=== PATIENT | female | born 1970 | race Caucasian/White ===

== ENCOUNTER → 2020-03-04 11:52 | Outpatient (CLI) | payer OTHER, SELFPAY ==
--- NOTE | 2020-03-04 11:56 | BI_ITS ---
MAMMOGRAPHY - BILATERAL SCREENING REASON FOR EXAM: Female, 49 years old. Routine annual screening examination. PERTINENT HISTORY: Non-contributory. TECHNIQUE: Digital bilateral breast star (3D mammographic acquisition) in the CC and MLO projections. 2-D mediolateral oblique (MLO) and craniocaudad (CC) views of both breasts were obtained. CAD: Full Field Digital Mammography with Computer Added Detection was performed. COMPARISON: Comparison is made with prior outside examination dated 03/07/2019. FINDINGS: Breast Composition: The breasts are extremely dense, which lowers the sensitivity of mammography. There are no dominant masses or suspicious calcifications. No other significant abnormalities are identified. There has been no significant change since the prior study. BI/SCREEN MAMM (CAD) W/STAR BILAT IMPRESSION: Stable bilateral screening mammogram. Yearly follow-up mammogram recommended. (A) ASSESSMENT CATEGORY: BIRADS Category 1: Negative. A letter regarding these results will be sent to the patient by the facility within 30 days. Approximately 10% of breast cancers are not detected by mammography. A normal mammogram should not delay biopsy of a clinically suspicious abnormality. [id number] Electronically Signed: Lucio Reynolds, at 14:37 EDT , Service support ,
== END ==
PROVIDERS: PCP Family Medicine; Referring Provider Family Medicine; Visit Provider Family Medicine
DX: Z12.31 Encounter for screening mammogram for malignant neoplasm of breast (principal)
CPT/HCPCS: 77063; 77067

== ENCOUNTER → 2022-12-22 | Outpatient (CLI) | payer OTHER, SELFPAY ==
--- NOTE | 2022-12-22 07:26 | BI_ITS ---
MAMMOGRAPHY - BILATERAL SCREENING REASON FOR EXAM: Female, 52 years old. Routine annual screening examination. PERTINENT HISTORY: Non-contributory. TECHNIQUE: Digital bilateral breast star (3D mammographic acquisition) in the CC and MLO projections. 2-D mediolateral oblique (MLO) and craniocaudad (CC) views of both breasts were obtained. CAD: Full Field Digital Mammography with Computer Added Detection was performed. COMPARISON: Comparison is made with prior examination March 04, 2020. FINDINGS: Breast Composition: The breasts are extremely dense, which lowers the sensitivity of mammography. There are no dominant masses or suspicious calcifications. No other significant abnormalities are identified. There has been no significant change since the prior study. BI/SCRN MAMM (CAD)W/STAR BILAT IMPRESSION: Stable bilateral screening mammogram. Yearly follow-up mammogram recommended. (A) ASSESSMENT CATEGORY: BIRADS Category 1: Negative. A letter regarding these results will be sent to the patient by the facility within 30 days. Approximately 10% of breast cancers are not detected by mammography. A normal mammogram should not delay biopsy of a clinically suspicious abnormality. [id number] Electronically Signed: Lucio Reynolds MD at 9:04 EDT ,
== END | disposition home or self-care (01) ==
PROVIDERS: PCP Family Medicine; Referring Provider Family Medicine; Visit Provider Family Medicine
DX: Z12.31 Encounter for screening mammogram for malignant neoplasm of breast (principal)
CPT/HCPCS: 77063; 77067

== ENCOUNTER → 2024-01-04 | Outpatient (CLI) | payer OTHER, SELFPAY ==
--- NOTE | 2024-01-04 07:13 | BI_ITS ---
MAMMOGRAPHY - BILATERAL SCREENING REASON FOR EXAM: Female, 53 years old. Routine annual screening examination. PERTINENT HISTORY: Non-contributory. TECHNIQUE: Digital bilateral breast star (3D mammographic acquisition) in the CC and MLO projections. 2-D mediolateral oblique (MLO) and craniocaudad (CC) views of both breasts were obtained. CAD: Full Field Digital Mammography with Computer Added Detection was performed. COMPARISON: Comparison is made with prior study dated December 22, 2022 and March 04, 2020. FINDINGS: Breast Composition: The breasts are heterogeneously dense, which may obscure small masses. There are no dominant masses or suspicious calcifications. No other significant abnormalities are identified. There has been no significant change since the prior study. BI/SCRN MAMM (CAD)W/STAR BILAT IMPRESSION: Stable bilateral screening mammogram. Yearly follow-up mammogram recommended. (A) ASSESSMENT CATEGORY: BIRADS Category 1: Negative. A letter regarding these results will be sent to the patient by the facility within 30 days. Approximately 10% of breast cancers are not detected by mammography. A normal mammogram should not delay biopsy of a clinically suspicious abnormality. [id number] Electronically Signed: Lucio Reynolds MD at 8:34 EDT ,
== END | disposition home or self-care (01) ==
LOC: OPBI 07:11
PROVIDERS: PCP Family Medicine; Referring Provider Family Medicine; Visit Provider Family Medicine
DX: Z12.31 Encounter for screening mammogram for malignant neoplasm of breast (principal)
CPT/HCPCS: 77063; 77067

== ENCOUNTER → 2025-06-21 | Outpatient (CLI) | payer OTHER, SELFPAY ==
--- NOTE | 2025-06-21 07:22 | BI_ITS ---
EXAM: SCRN MAMM (CAD)W/STAR BILAT DATE: 06/21/2025 CLINICAL HISTORY: F, Age 54 y/o , SCREEN TECHNIQUE: Procedure Code: [id number] Modality: MG Procedure: SCRN MAMM (CAD)W/STAR BILAT COMPARISON: Prior exam(s) dated 01/04/2024, 12/22/2022, 03/04/2020. FINDINGS: TISSUE DENSITY: There are scattered areas of fibroglandular density. Bilateral Breast Mammographic Findings: No significant masses, calcifications or other abnormalities are identified. BI/SCRN MAMM (CAD)W/STAR BILAT IMPRESSION: There is no mammographic evidence of malignancy. OVERALL FINAL ASSESSMENT BI-RADS 1: NEGATIVE. RECOMMENDATION: Routine annual follow-up in 1 Year Additional Recommendation none A letter with findings and recommendations will be mailed to the patient. Reading Location: [id number]
--- OUTSIDE RECORDS SUMMARY | 2025-06-21 07:26 | XMS RPT_ITS | CCD ---
Author Organization [facility] Care Team Providers Care Lawn Care Worker Name Role Phone Joslyn Gibbs PA-C Primary Care Provider [phone] Sai POLK, Joslyn Attending Cherelle POLK, Joslyn Referring Unavailable Joslyn Morales Primary Care Unavailable Sai POLK, Joslyn Attending Unavailable [place] FELICITAS, Joslyn Primary Care Unavailable ALEXIA BRENNAN, REMI Bullock Referring Unavailangie MILLER II, REMI H Attending Unavailabl JOSLYN Morris Primary Care Unavailable JOSLYN GIBBS Attending JOSLYN [place] Consulting Cherelle [place] Primary Care Unavailable JOSLYN GIBBS Admitting Unavailable PROVIDER, UNKNOWN Consulting Unavailable Allergies Allergy Classification Reported Allergen(s) Allergy Type Date of Onset Reaction(s) Facility (2 sources) Latex; Translations: [LATEX] Propensity to adverse reactions 7 Rash [facility] Work Phone: (2 sources) Penicillins; Translations: [PENICILLINS] Propensity to adverse reactions 6 [facility] Work Phone: (1 source) Penicillin Drug Allergy [facility] Repository Medications Current Medications Medication Drug Class(es) Dates Sig (Normalized) Sig (Original) tropicamide 5 mg/ml ophthalmic solution (1 source) Anticholinergic Start: 06-15-2023 End: 06-16-2023 tropicamide 0.5 % 1 Drop (MYDRIACYL) Completed/Discontinued Medications Medication Drug Class(es) Dates Sig (Normalized) Sig (Original) zolpidem tartrate 10 mg oral tablet (1 source) gamma-Aminobutyri c Acid-ergic Agonist Start: 07-26-2011 take 1 tablet by mouth every twenty-four hours as needed zolpidem (AMBIEN) 10 mg ORAL Tab Take 1 tablet by mouth at bedtime as needed. FOR INSOMNIA 0 07/26/2011 Active Comment on above: Take 1 tablet by alden th at bedtime as needed. FOR INSOMNIA Problems Active Problems Problem Classification Problem Date Documented Date Episodic/Chronic Blindness and vision defects (2 sources) Bilateral regular astigmatism; Translations: [Regular astigmatism, bilateral] 06-15-2023 Episodic Disorders of lipid metabolism (1 source) Hyperlipidemia, unspecified; Translations: [Hyperlipidemia, unspecified] Onset: 05-22-2025 Chronic Other screening for suspected conditions (not mental disorders or infectious disease) (2 sources) Encounter for screening mammogram for malignant neoplasm of breast; Translations: [Encounter for screening for diabetes mellitus] Onset: 01-16-2024 Episodic Residual codes; unclassified (1 source) History of surgical procedure on eye proper using laser; Translations: [Other specified postprocedural states] 06-15-2023 Episodic Past or Other Problems Problem Classification Problem Date Documented Date Episodic/Chronic Residual codes; unclassified (1 source) History of endometrial ablation; Translations: [Other specified postprocedural states] Onset: 12-28-2012 12-28-2012 Episodic Results Test Name Value Interpretation Reference Range Facil ity CMP with eGFRon 05-22-2025 AGE 54 years Normal [facility] Comment on above: Performed By: #### 2 31840 #### [facility],[address] [place] [address] Albumin [Mass/Vol] 3.9 g/dL Normal 3.4 - 5.0 [facility] Comment on above: Performed By: #### 2 88151 #### [facility],[address] [place] [address] Albumin/Globulin [Mass ratio] 1.2 {ratio} Normal 0.9 - 1.6 [facility] Comment on above: Performed By: #### 2 94432 #### [facility],[address] [place] [address] ALK PHOS 67 U/L Normal 46 - 116 [facility] Comment on above: Performed By: #### 2 15203 #### [facility],[address] [place], [place] [phone] ALT [Catalytic activity/Vol] 35 U/L Normal 16 - 63 [facility] Comment on above: Performed By: #### 2 86971 #### [facility],[address] [place] [address] Anion gap [Moles/Vol] 10 mmol/L Normal 10 - 20 [facility] Comment on above: Performed By: #### 2 44621 #### [facility],[address] [place] [address] AST [Catalytic activity/Vol] 23 U/L Normal 13 - 39 [facility] Comment on above: Performed By: #### 2 05144 #### [facility],[address] [place] [address] B/C RATIO 24 ratio Normal 0 - 30 [facility] Comment on above: Performed By: #### 2 71392 #### [facility],[address] [place], [place] [phone] Bilirubin [Mass/Vol] 0.5 mg/dL Normal 0.2 - 1.0 [facility] Comment on above: Performed By: #### 2 56471 #### [facility],[address] [place], [place] [phone] Calcium [Mass/Vol] 8.7 mg/dL Normal 8.5 - 10.1 [facility] Comment on above: Performed By: #### 2 97762 #### [facility],[address] [place], [place] [phone] Chloride [Moles/Vol] 104 mmol/L Normal 98 - 107 [facility] Comment on above: Performed By: #### 2 26281 #### [facility],[address] [place] [address] CMP with eGFR Normal [facility] Comment on above: Result Comment: COMP REHENSIVE METABOLIC PANEL Performed By: #### 2 25908 #### [facility],[address] [place], [place] [phone] CO2 [Moles/Vol] 29.4 mmol/L Normal 21.0 - 32.0 [facility] Comment on above: Performed By: #### 2 90935 #### [facility],[address] [place], [place] [address] Creatinine [Mass/Vol] 0.75 mg/dL Normal 0.55 - 1.02 [facility] Comment on above: Performed By: #### 2 49250 #### [facility],[address] [place], [place] [address] GFR/1.73 sq M.predicted among non-blacks MDRD (S/P/Bld) [Vol rate/Area] mL/min/{1.73_m2} Normal 60 - 999 [facility] Comment on above: Performed By: #### 2 31969 #### [facility],[address] [place] [address] Result Comment: ACCO RDING TO THE NATIONAL KIDNEY DISEASE EDUCATION PROGRAM(NKDE), A NORMAL eGFR IS A VALUE GREATER THAN OR EQUAL TO 60 ML/MIN/1.73 SQ METERS. CHRONIC KIDNEY DISEASE: <60mL/MIN/1.73 SQ METERS KIDNEY FAILURE: <15mL/MIN/1.73 SQ METERS THIS TEST SHOULD ONLY BE USED FOR PATIENTS 18 YEARS OF AGE AND OLDER. Globulin (S) [Mass/Vol] 3.2 g/dL Normal 1.5 - 3.8 [facility] Comment on above: Performed By: #### 2 60711 #### [facility],[address] [place], [place] [phone] Glucose [Mass/Vol] 103 mg/dL Normal 74 - 106 [facility] Comment on above: Performed By: #### 2 80065 #### [facility],[address] [place] [address] Potassium [Moles/Vol] 4.1 mmol/L Normal 3.5 - 5.1 [facility] Comment on above: Performed By: #### 2 87691 #### [facility],[address] [place] [address] Protein [Mass/Vol] 7.1 g/dL Normal 6.4 - 8.2 [facility] Comment on above: Performed By: #### 2 94991 #### [facility],[address] [place] [address] Sodium [Moles/Vol] 139 mmol/L Normal 136 - 145 [facility] Comment on above: Performed By: #### 2 47873 #### [facility],[address] [place] [address] Urea nitrogen [Mass/Vol] 18 mg/dL Normal 7 - 18 [facility] Comment on above: Performed By: #### 2 92608 #### [facility],[address] [place] [address] LIPID PROFILEon 05-22-2025 Cholesterol [Mass/Vol] 213 mg/dL Normal 0 - 240 [facility] Comment on above: Performed By: #### 2 19009 #### [facility],[address] [place] [address] Cholesterol in HDL [Mass/Vol] 46 mg/dL Normal 40 - 60 [facility] Comment on above: Performed By: #### 2 44412 #### [facility],[address] [place] [address] Cholesterol in LDL [Mass/Vol] 140 mg/dL High 0 - 129 [facility] Comment on above: Performed By: #### 2 71699 #### [facility],[address] [place] [address] Cholesterol.total/ Cholesterol in HDL [Mass ratio] 4.6 {ratio} Normal 0.0 - 5.0 [facility] Comment on above: Performed By: #### 2 41992 #### [facility],[address] [place] [address] Lipid 1996 panel Normal [facility] Comment on above: Result Comment: LIPI D PROFILE Performed By: #### 2 55882 #### [facility],[address] [place] [address] Triglyceride [Mass/Vol] 135 mg/dL Normal 0 - 150 [facility] Comment on above: Performed By: #### 2 56656 #### [facility],[address] [place] [address] Bacteria Ur Culton 4 Bacteria identified Cx Nom (U) CULTURE, URINE: Normal urogenital randy: ORGANISM ID: 1 50,000-<100,000 CFU/ml Lactobacillus species No further workup Normal [facility] Comment on above: Performed By: #### 6 30-4 #### [facility] CLIA [id number] [address] [place] [address] [place] Bacteria Ur Culton 4 Bacteria identified Cx Nom (U) ORGANISM ID: 1 10,000 -<50,000 CFU/ml Normal urogenital randy Normal [facility] Comment on above: Performed By: #### 6 30-4 #### [facility] CLIA [id number] [address] [place] [address] [place] SCRN MAMM (CAD)W/STAR BILATo n 01-04-2024 SCRN MAMM (CAD)W/STAR BILAT [facility] Imaging Services [address] [place] [address] [id number] SCRN MAMM (CAD)W/STAR BILAT MR#: [id number] Acct: [id number] Name: CHRISTINA MACHADO Rep #: [id number] : 1970 F 53 From: Lucio aguirre MD PCP: Joslyn Gibbs PA-C Status: [facility] Study: SCRN MAMM (CAD)W/STAR BILAT Date of Exam: 12/10 01/01 Exam# [id number] Ordering Dr: Joslyn Gibbs [id number] MAMMOGRAPHY - BILATERAL SCREENING REASON FOR EXAM: Female, 53 years old. Routine annual screening examination. PERTINENT HISTORY: Non-contributory. TECHNIQUE: Digital bilateral breast star (3D mammographic acquisition) in the CC and MLO projections. 2-D mediolateral oblique (MLO) and craniocaudad (CC) views of both breasts were obtained. CAD: Full Field Digital Mammography with Computer Added Detection was performed. COMPARISON: Comparison is made with prior study dated December 22, 2022 and March 04, 2020. FINDINGS: Breast Composition: The breasts are heterogeneously dense, which may obscure small masses. There are no dominant masses or suspicious calcifications. No other significant abnormalities are identified. There has been no significant change since the prior study. BI/SCRN MAMM (CAD)W/STAR BILAT IMPRESSION: Stable bilateral screening mammogram. Yearly follow-up mammogram recommended. (A) ASSESSMENT CATEGORY: BIRADS Category 1: Negative. A letter regarding these results will be sent to the patient by the facility within 30 days. Approximately 10% of breast cancers are not detected by mammography. A normal mammogram should not delay biopsy of a clinically suspicious abnormality. [id number] Electronically Signed: Lucio Reynolds MD at 8:34 EDT , CC: CITLALI Gibbs Award Clerk: Signed Normal [facility] Plant Production Worker Cytology Reporton 2021 Plant Production Worker Cytology Report . Pathology Reports Accession: Collected Date/Time: Received Date/Time: Pathologist: [id number] 12/16/2021 11:37 EDT 12/16/2021 18:00 EDT Plant Production Worker Cytology Report SPECIMEN: Specimen Description: Liquid Prep w/ HPV Specimen: No Source Given Screening or Diagnostic: Screening RELEVANT HISTORY: LMP: NOT GIVEN [id number] SPECIMEN ADEQUACY: SATISFACTORY FOR EVALUATION ENDOCERVICAL/TRANSFOR MATIONAL ZONE COMPONENT PRESENT INTERPRETATION/RESULT S: NEGATIVE FOR INTRAEPITHELIAL LESION OR MALIGNANCY HIGH RISK HPV TESTING: High Risk HPV Typing: Negative HPV Types 16, 18, 31, 33, 35, 39, 45, 51, 52, 56, 58, 59, 66 and 68 DNA were undetectable or be low the pre-set threshold. The magan High-Risk HPV DNA Test is not intended for use as a screening device for Pap normal women under age 30 and is not intended to substitute for regular Pap screening. The magan High-Risk HPV DNA Test is designed to augment existing methods for the detection of cervical disease and should be used in conjunction with clinical information derived from [facility] diagnostic and screening tests, physical examinations and full medical history in accordance with appropriate patient management procedures. NOTE: A negative result does not preclude the presence of HPV infection because results depend on adequate specimen collection, absence of inhibitors and sufficient DNA to be detected. COMMENT: This Pap Test was successfully processed and evaluated with the assistance of the Ynvisible Thin Prep Test Imaging System. Electronically Signed by Pathology report verified by [facility] Screened by: [place] Electronically signed by Brigitte BARNETT (ASC) Sign-Out Date: 12/23/2021 10:12 Performing Lab: [facility], [address] [place] [address] Disclaimer The Pap test is a screening test for cervical cancer. As evidenced by published data, it is sub ject to both inherent false negative and false positive results. Your patient's results should be interpreted in context with pertinent clinical history including gynecological examination. Normal [facility] [place] HPVon 12-22-2021 HPV Interp Normal See Interp HPVN [facility] ([place] Comment on above: Order Comment: Order placed by AP_HPV_ORDER rule from [id number] Result Comment: High Risk HPV Typing: NEGATIVE HPV types 16, 18, 31, 33, 35, 39, 45, 51, 52, 56, 58, 59, 66 and 68 DNA were undetectable or below the pre-set threshold. The magan High-Risk HPV DNA Test is not intended for use as a screening device for Pap normal women under age 30 and is not intended to substitute for regular Pap screening. The magan High-Risk HPV DNA Test is designed to augment existing methods for the detection of cervical disease and should be used in conjunction with clinical information derived from other diagnostic and screening tests, physical examinations and full medical history in accordance with appropriate patient management procedures. NOTE: A negative result does not preclude the presence of HPV infection because results depend on adequate specimen collection, absence of inhibitors and sufficient DNA to be detected. See Interp HPVN Performed By: #### H PV #### [place] [address] HPV Source Cervix Normal [facility] ([place] Comment on above: Order Comment: Order placed by AP_HPV_ORDER rule from [id number] Performed By: #### H PV #### [place] [address] Plant Production Worker Cytology Reporton 2020 Plant Production Worker Cytology Report . Pathology Reports Accession: Collected Date/Time: Received Date/Time: Pathologist: [id number] 03/02/2021 10:37 EDT 03/02/2021 18:00 EDT DO BANG MAYNARD Plant Production Worker Cytology Report SPECIMEN: Specimen Description: Liquid Prep w/ HPV Specimen: Cervical Screening or Diagnostic: Screening RELEVANT HISTORY: LMP: 02/10/21 [id number] SPECIMEN ADEQUACY: Specimen processed and examined, but unsatisfactory for evaluation of epithelial abnormality because of Scant Cellularity. INTERPRETATION/RESULT S: UNSATISFACTORY SPECIMEN. ADJUNCTIVE TESTING: COMMENT: HPV TESTING CANCELLED DUE TO UNSATISFACTORY SPECIMEN, SCANT CELLULARITY. COMMENT: This Pap Test was analyzed by the Ynvisible ThinPrep Test Imaging System. Due to technical imaging issues or the physical propertied of the specimen slide, a manual screen was indicated. Electronically Signed by Pathology report verified by [facility] Screened by: GL MES Electronically signed by BANG MAYNARD DO Sign-Out Date: 03/10/2021 12:19 Performing Lab: [address] Disclaimer The Pap test is a screening test for cervical cancer. As evidenced by published data, it is subject to both inherent false negative and false positive results. Your patient's results should be interpreted in context with pertinent clinical history including gynecological examination. Normal [facility] ([place] Comment on above: Performed By: #### G YCR #### [facility] [address] [place] [address] THINPREP PAP AND HPV mRNA E6 /E7on 03-11-2020 CLINICAL INFORMATION: Normal [facility] Comment on above: Result Comment: None given Performed By: #### 9 0931 #### [facility]-[address], [address] [place] [address] It Network Engineer: Khadar Polanco MD COMMENT Normal [facility] Comment on above: Result Comment: EXPL ANATORY NOTE: The Pap is a screening test for cervical cancer. It is not a diagnostic test and is subject to false negative and false positive results. It is most reliable when a satisfactory sample, regularly obtained, is submitted with relevant clinical findings and history, and when the Pap result is evaluated along with historic and current clinical information. Performed By: #### 9 0931 #### [facility]-[address], [address] [place] [address] It Network Engineer: Khadar Polanco MD CONTRACT LOADER: Normal [facility] Comment on above: Result Comment: PEH, CT(ASCP) CT screening location: [place] [address]. Performed By: #### 9 0931 #### [facility]-[address], [address] [place], [place] [id number] It Network Engineer: Khadar Polanco MD GENERAL CATEGORIZATION: Abnormal [facility] Comment on above: Result Comment: EPIT HELIAL CELL ABNORMALITY Performed By: #### 9 0931 #### [facility]-[address], [address] [place] [phone] It Network Engineer: Khadar Polanco MD INTERPRETATION/RES ULT: Abnormal [facility] Comment on above: Result Comment: Atyp ical Squamous Cells of Undetermined Significance (ASC-US) Performed By: #### 9 0931 #### [facility]-[address], [address] [place] [phone] It Network Engineer: Khadar Polanco MD LMP: Normal [facility] Comment on above: Result Comment: 02/17 Performed By: #### 9 0931 #### [facility]-[place] [address] It Network Engineer: Khadar Polanco MD PATHOLOGIST: Normal [facility] Comment on above: Result Comment: Myrtle Barreto MD Board Certified in Anatomic and Clinical Pathology Board Certified in Cytopathology (electronic signature) For questions regarding this report call Anatomic Pathology at [phone] Performed By: #### 9 0931 #### [facility]-[place] [address] It Network Engineer: Khadar Polanco MD Platelet mean volume (Bld) [Entitic vol] Not Detected Normal Not Detected [facility] Comment on above: Result Comment: This test was performed using the APTIMA HPV Assay ([employer] This assay detects E6/E7 viral messenger RNA (mRNA) from 14 high-risk HPV types (16,18,31,33,35,39,45,51,52,56,58,59,66,68). The analytical performance characteristics of this assay have been determined by [employer]. The modifications have not been cleared or approved by the FDA. This assay has been validated pursuant to the CLIA regulations and is used for clinical purposes. Performed By: #### 9 0931 #### [facility]-[place] [address] It Network Engineer: Khadar Polanco MD PREV. BX: None given Normal [facility] Comment on above: Performed By: #### 9 0931 #### [facility]-[place] [address] It Network Engineer: Khadar Polanco MD PREV. PAP: Normal [facility] Comment on above: Result Comment: None given Performed By: #### 9 0931 #### [facility]-[place] [address] It Network Engineer: Khadar Polanco MD SOURCE: Normal [facility] Comment on above: Result Comment: Cerv ix Performed By: #### 9 0931 #### [facility]-[address], [address] [facility] [place] [address] It Network Engineer: Khadar Polanco MD STATEMENT OF ADEQUACY: Normal [facility] Comment on above: Result Comment: Sati sfactory for evaluation. Endocervical/transformation zone component present. Performed By: #### 9 0931 #### [facility]-[address], [address] [place] [address] - [place] [address] It Network Engineer: Khadar Polanco MD Encounters Encounter Date Encounter Type Care Provider Facility Start: 05-22-2025 End: 05-22-2025 ambulatory [facility] Start: 01-04-2024 End: 01-04-2024 ambulatory [facility] Facility:[facility] Start: 12-21-2023 ambulatory [facility] Facil ity:[facility] Start: 06-15-2023 End: 06-15-2023 ambulatory REMI MILLER II Facility:[facility] Start: 06-15-2023 End: 06-15-2023 Patient encounter procedure Remi Miller OD Work Phone: Optometry Comment on above: Regular astigmatism, bilateral (Primary Dx); Presbyopia; History of laser refractive surgery Start: 12-22-2022 End: 12-22-2022 ambulatory [facility] Work Phone: Start: 12-22-2022 End: 12-22-2022 Patient encounter procedure [facility]-Outpatient Breast Imaging Procedures Date Procedure Procedure Detail Performing Clinician Start: 12-22-2022 Screening mammography Start: 03-19-2015 Lipid 1996 panel - S brian or Plasma Remi Miller II, OD Work Phone: Plan of Treatment Date Care Activity Detail Author Start: 03-11-2023 Influenza vaccination Influenza Vacc ine (#1) [facility] Start: 02-27-2023 Urine microalbumin profile DTa P,Tdap,Td Vaccine (2 - Td or Tdap) [facility] Start: 07-11-2022 Depression Assessment Depression Ass essment [facility] Start: 10-27-2021 Shingrix Vaccine (1 of 2) Shingrix V accine (1 of 2) [facility] Start: 03-19-2020 Lipid 1996 panel - S brian or Plasma Lipid Screening [facility] Start: 03-07-2020 Mammography Mammogram Screening [facility] Start: 10-27-2016 Cologuard (FIT-DNA) Cologuard (FIT-D NA) [facility] Start: 10-27-2016 Colonoscopy Colonoscopy [facility] Start: 10-27-2016 Colorectal Cancer Screening Colorectal Cancer Screening [facility] Start: 10-27-[address] Colonography [facility] Start: 10-27-2016 Diabetes Screening Diabetes Screenin g [facility] Start: 10-27-2016 Fecal Occult Blood Fecal Occult Bloo d [facility] Start: 10-27-2016 Sigmoidoscopy Sigmoidoscopy [facility] Start: 08-16-2016 HPV Testing HPV Testing [facility] Start: 08-16-2016 Pap Testing Pap Testing [facility] Start: 10-27-1989 Hepatitis C Screening Hepatitis C Sc reening [facility] Start: 10-27-1989 HIV Screening HIV Screening [facility] Start: 04-28-1972 Covid-19 Vaccine (#1) Covid-19 Vacci ne (#1) [facility] Start: 1970 Hepatitis B Vaccine (1 of 3 - 3-dose series) Hepatitis B Vaccine (1 of 3 - 3-dose series) [facility] Immunizations Immunization Date Immunization Notes Care Provider Fa cility 04-24-2020 influenza virus vaccine, unspecified formulation Remi Miller II, OD Work Phone: [facility] Payers Date Payer Category Payer Self-pay [id number] 2023 Unknown [id number] 2022 Unknown [employer] [place] [employer] [id number] 2022-Present [address] [place] [address] Indemnity [id number] 2022 Unknown [id number] 1970 Unknown [id number] 1 Unknown [employer] [id number] Unknown [id number] Unknown [id number] 2 Unknown [id number] 2 Social History Date Type Detail Facility Tobacco smoking stat [facility] Unknown [facility] smoked [facility] [facility] Work Phone: Start: 1970 Sex Assigned At Female W [facility] Start: 01-01-2014 Tobacco smoking stat [facility] Never smoked tobacco [facility] Start: 01-01-2014 Tobacco use and exposure Smoke less tobacco non-user [facility] Start: 06-15-2023 Alcohol intake Current drinke r of alcohol (finding) [facility] Start: 06-15-2023 History of Social function [facility] Start: 06-15-2023 Area Deprivation Index [facility] National Score (1-10 0), lower number is lower risk 47 [facility] Start: 1970 Sex Assigned At Not on file [facility] Instructions 06-15-2023 Patient Instructions Note Date & Type Note Facility 06-15-2023 Instructions Remi Miller II, OD - 06/15/2023 4:13 PM EST Assessment and Plan H52.223 Regular astigmatism, bilateral (primary encounter diagnosis) H52.4 Presbyopia Comment: Glasses as needed to maximize visual performance at distance and near. Z98.890 History of laser refractive surgery Comment: Stable corneas both eyes. I have confirmed and edited as necessary the relevant ophthalmic history, ROS, and the neuro exam findings as obtained by others. I have seen and examined Christina Machado. I have discussed the case and the management of this patient's care with the Resident/Fellow, if applicable. I also have reviewed and agree with the assessment and plan as stated above and agree with all of its relevant components. Remi Miller II, OD documented in this encounter [facility] Progress note 06-15-2023 Note Date & Type Note Facility 06-15-2023 Note HNO ID: [id number] Author: Remi Miller II OD Service: ? Author Type: DIRECTOR AUTOMOTIVE Type: Progress Notes Filed: 06/15/2023 4:13 PM Note Text: Assessment and Plan H52.223 Regular astigmatism, bilateral (primary encounter diagnosis) H52.4 Presbyopia Comment: Glasses as needed to maximize visual performance at distance and near. Z98.890 History of laser refractive surgery Comment: Stable corneas both eyes. I have confirmed and edited as necessary the relevant ophthalmic history, ROS, and the neuro exam findings as obtained by others. I have seen and examined Christina Machado. I have discussed the case and the management of this patient's care with the Resident/Fellow, if applicable. I also have reviewed and agree with the assessment and plan as stated above and agree with all of its relevant components. Remi Miller II, OD [facility] History of Present illness Narrative 06-15-2023 Remi Miller II, OD - 06/15/2023 4:12 PM EST Note Date & Type Note Facility 06-15-2023 History of Presen t illness Narrative Assessment and Plan H52.223 Regular astigmatism, bilateral (primary encounter diagnosis) H52.4 Presbyopia Comment: Glasses as needed to maximize visual performance at distance and near. Z98.890 History of laser refractive surgery Comment: Stable corneas both eyes. I have confirmed and edited as necessary the relevant ophthalmic history, ROS, and the neuro exam findings as obtained by others. I have seen and examined Christina Machado. I have discussed the case and the management of this patient's care with the Resident/Fellow, if applicable. I also have reviewed and agree with the assessment and plan as stated above and agree with all of its relevant components. Remi Miller II, OD documented in this encounter [facility] Evaluation note Note Date & Type Note Facility Evaluation note No assessment information availa [facility] Work Phone: Evaluation note Note Date & Type Note Facility Evaluation note Diagnosis Regular astigmatism, bilateral- Primary Presbyopia History of laser refractive surgery Other states following surgery of eye and adnexa documented in this encounter [facility] Summary Purpose Family History No Family History Records FoundNo Family History Records FoundNo Family History Records FoundNo Family History Records FoundNo Family History Records Found Advance Directives No Advanced Directives Records FoundNo Advanced Directives Records FoundNo Advanced Directives Records FoundNo Advanced Directives Records FoundNo Advanced Directives Records Found Chief Complaint and Reason for Visit Chief Complaint SCREENING Medications Administered Section Active Administered Medications - up to 3 most recent administrations Medication Order MAR Action Action Date Dose Rate Site tropicamide 0.5 % 1 Drop (MYDRIACYL) 1 Drop, BOTH EYES, DIRECTED, Starting on Tue06/15/23 at 1630, Until Tue06/16/23 at 0429, Administer for dilation Given 06/15/2023 4:30 PM EST 1 Drop Additional Source Comments INFORMATION SOURCE (unrecogn ized section and content) DATE CREATED AUTHOR 03/11/2020 [facility] DATE CREATED AUTHOR AUTHOR'S ORGANIZ ATION 12/24/2021 [facility] DATE CREATED AUTHOR AUTHOR'S ORGANIZ ATION 01/24/2024 [facility] DATE CREATED AUTHOR AUTHOR'S ORGANIZ ATION 03/20/2024 [facility] DATE CREATED AUTHOR AUTHOR'S ORGANIZ ATION 05/23/2025 [facility] Care Teams (unrecognized sec tion and content) Team Status: Active Member Role Status Dates Joslyn POLK PA-C Primary Care Provider Active Team Status: Inactive Member Role Status Dates Joslyn POLK PA-C Primary Care Pro vider, Attending Provider, Referring Provider Active [employer] Worker Relationship Specialty Start Date End Date Joslyn Gibbs PA-C [address] [place] [address] [address] [place] [address] PCP - General Family Medicine 06/15/23 Goals (unrecognized section and content) Goals may be documented in a n alternate section Source Comments (unrecognize d section and content) In the event this informatio n is protected by the Federal Confidentiality of Alcohol and Drug Abuse Patient Records regulations: The Federal rules restrict any use of the information to criminally investigate or prosecute any alcohol or drug abuse patient.[facility] Reason for Visit (unrecogniz ed section and content) Reason Comments Yearly Exam FOR RECORDS PERTAINING TO PATIENTS WHO ARE OR HAVE BEEN ENROLLED IN A CHEMICAL DEPENDENCY/SUBSTANCEABUSE PROGRAM, SOME INFORMATION MAY BE OMITTED. This clinical summary was aggregated from multiple sources. Caution should be exercised in using it in the provision of clinical care. This summary normalizes information from multiple sources, and as a consequence, information in this document may materially change the coding, format and clinical context of patient data. In addition, data may be omitted in some cases. CLINICAL DECISIONS SHOULD BE BASED ON THE PRIMARY CLINICAL RECORDS. [facility] provides no warranty or guarantee of the accuracy or completeness of information in this document.
== END | disposition home or self-care (01) ==
LOC: OPBI 07:21
PROVIDERS: PCP Family Medicine; Referring Provider Family Medicine; Visit Provider Family Medicine
DX: Z12.31 Encounter for screening mammogram for malignant neoplasm of breast (principal)
CPT/HCPCS: 77063; 77067